=== PATIENT | male | born 1990 | race Caucasian/White ===

== ENCOUNTER 2016-10-19 06:47 | Emergency (ER) | payer OTHER ==
[~2016-10-19 06:47] MED LIST: ALBUTEROL17 GM INH; BENZONATATE PO; BENZONATATE200 M1 PO; DICLOFENAC PO; KEFLEX500 M1 PO; NO MEDICATIONS; PHENERGAN DM PO; PHENERGAN25 M1 PO; PHENERGAN25 MG PO; PREDNISONE PO; PRILOSEC40 MG PO; PROMETHAZINE D118 ML PO; TAMIFLU75 M1 DOB; TYLENOL #3 PO; ZITHROMAX PO; ZOFRAN PO
== END 2016-10-19 06:55 | disposition home or self-care (01) ==
LOC: SED 06:47
DX: K08.89 Other specified disorders of teeth and supporting structures (principal); J45.909 Unspecified asthma, uncomplicated; F17.200 Nicotine dependence, unspecified, uncomplicated
CPT/HCPCS: 99282